=== PATIENT | male | born 1980 | race Caucasian/White ===

== ENCOUNTER 2018-06-19 07:42 | Emergency (ER) | payer BC ==
[2018-06-19 08:00] VITALS: BP 121/84
--- NOTE | 2018-06-19 08:20 | UC ---
Skin Complaint HPI - HPI Summary HPI Summary: 38 M with rash. c/o itchy rash to chest and back beginning two days ago. Denies any difficulty breathing. Has been treating with topical cortisone cream for the itching. Patient states cortisone cream help but just for short period of time. The rash started on the left flank and has since then spread across the chest to the right flank and on the back. He states it is very itchy at this time. He denies any fevers or chills. Denies any recent antibiotics or recent travel. Denies any sick contacts or any other people that have a similar rash. He has not tried any other [id number] medication [ End ] - History of Current Complaint Chief Complaint: UCSkin Time Seen by Provider: 06/19/18 08:19 Stated Complaint: RASH Hx Obtained From: Patient Onset/Duration: Gradual Onset Skin Exposure Onset/Duration: Days Ago Timing: Constant Onset Severity: Mild Current Severity: Moderate Pain Intensity: 0 Aggravating Factor(s): OTC Meds Alleviating Factor(s): Nothing - Allergy/Home Medications Allergies/Adverse Reactions: Allergies Allergy/AdvReac Type Severity Reaction Status Date / Time erythromycin base Allergy Rash Verified 06/19/18 07:56 Review of Systems Skin: Rash Is Patient Immunocompromised?: No All Other Systems Reviewed And Are Negative: Yes PMH/Surg Hx/FS Hx/Imm Hx Previously Healthy: Yes - Surgical History Surgical History: Yes Surgery Procedure, Year, and Place: Gastric Bypass 2012 - Social History Occupation: Employed Full-time Alcohol Use: Rare Substance Use Type: None Smoking Status (MU): Never Smoked Tobacco Have You Smoked in the Last Year: No - Immunization History Hx Tetanus, Diphtheria Vaccination: Yes Vaccination Up to Date: Yes Physical Exam Triage Information Reviewed: Yes Appearance: Well-Appearing, No Pain Distress, Well-Nourished Vital Signs: Initial Vital Signs Temp 97.7 F 06/19/18 07:53 Pulse 68 06/19/18 07:53 Resp 18 06/19/18 07:53 BP 121/84 06/19/18 07:53 Pulse Ox 99 06/19/18 07:53 Vital Signs Reviewed: Yes Eyes: Positive: Conjunctiva Clear ENT: Positive: Hearing grossly normal Respiratory Exam: Normal Cardiovascular Exam: Normal Musculoskeletal Exam: Normal Neurological Exam: Normal Psychological Exam: Normal Skin: Positive: rashes - Punctate maculopapular red raised lesions that coalesce on the left and right flanks. Intermittently dispersed across the chest and back as well. No discharge or induration. No ecchymosis. No Vesicular lesions. Course/Dx - Course Course Of Treatment: Concern for a candidal yeast infection based on the presence but also with the extreme itching and large percentage of the chest and flank involved well all for Medrol Dosepak. He is aware of the side effects and if no improvement to return for further evaluation. - Differential Diagnoses - Skin Complaint Differential Diagnoses: Contact Dermatitis, Local Allergic Reaction, Viral Exanthem - Diagnoses Provider Diagnoses: Candidal skin infection. rash , unspecified Discharge - Sign-Out/Discharge Documenting (check all that apply): Patient Departure All imaging exams completed and their final reports reviewed: No Studies - Discharge Plan Condition: Good Disposition: HOME Prescriptions: Fluconazole [Diflucan] 150 mg PO ONCE #2 tablet methylPREDNISolone [Medrol Dosepak 4 MG*] 0 mg PO .SEE ENRIQUE INSTRUCTION #1 tab Patient Education Materials: Skin Yeast Infection (ED), Acute Rash (ED) Referrals: Nehemias Hunter MD [Primary Care Provider] - 4 Days - Billing Disposition and Condition Condition: GOOD Disposition: Home
== END 2018-06-19 08:30 | disposition home or self-care (01) ==
LOC: UCCORT 07:42
DX: B37.2 Candidiasis of skin and nail (principal); R21 Rash and other nonspecific skin eruption; Z88.1 Allergy status to other antibiotic agents
CPT/HCPCS: 99212; G0463